=== PATIENT | female | born 1940 | race Caucasian/White ===

== ENCOUNTER 2024-08-10 06:37 | Day surgery (SDC) | payer OTHER ==
[~2024-08-10 06:37] MED LIST: CIPRO750 MG PO; Colace 100MG PO; NEURONTIN PO; Oxycodone-Apap 5-325 MG Tab PO; Zolpidem Tartrate 10MG PO
[2024-08-10] MEDS ORDERED: fentaNYL CITRATE 50 MCG/ML AMPUL IV ONE (10:00)
[2024-08-10] MEDS ORDERED: MIDAZOLAM HCL 2 MG/2 ML VIAL IV ONE (10:00)
[2024-08-10] MEDS ORDERED: DIPHENHYDRAMINE HCL 50 MG/ML VIAL 1ML IV ONE (10:00)
[2024-08-10] MEDS ORDERED: ENALAPRILAT DIHYDRATE 2.5 MG/2 ML VIAL IV ONE (11:30)
== END 2024-08-10 12:35 | disposition home or self-care (01) ==
LOC: AMB-ENDOS 06:37
PROVIDERS: ATTEND Surgery
DX: D12.5 Benign neoplasm of sigmoid colon (principal); K63.5 Polyp of colon; K57.30 Diverticulosis of large intestine without perforation or abscess without bleeding; K64.8 Other hemorrhoids; Z86.0100 Personal history of colon polyps, unspecified